=== PATIENT | female | born 1965 | race Caucasian/White ===

== ENCOUNTER 2023-08-15 12:15 | Emergency (ER) | payer OTHER ==
[~2023-08-15] VITALS: Ht 157.5 cm; Wt 59.0 kg
[2023-08-15 12:40] VITALS: BP 120/66; PULSE 78; RESP 18; TEMP 97.5; O2SAT 98
[2023-08-15] MEDS ORDERED: IBUP-1842 PO (12:41)
[2023-08-15 14:15] VITALS: BP 135/80; PULSE 78; RESP 18; TEMP 98; O2SAT 99
== END 2023-08-15 14:15 | disposition home or self-care (01) ==
LOC: MED 12:15
DX: S02.2XXA Fracture of nasal bones, initial encounter for closed fracture (principal); X58.XXXA Exposure to other specified factors, initial encounter; Y93.89 Activity, other specified; Y92.89 Other specified places as the place of occurrence of the external cause; Y99.8 Other external cause status
CPT/HCPCS: 70486; 99284